=== PATIENT | female | born 1955 | race Caucasian/White ===

== ENCOUNTER → 2021-06-02 | Outpatient (CLI) | payer MEDICARE, OTHER | LOC: EXRD 12:54 | DX: Z78.0 Asymptomatic menopausal state (principal) | CPT/HCPCS: 77080 ==

== ENCOUNTER → 2021-11-03 | Outpatient (CLI) | payer MEDICARE, OTHER | LOC: US 12:50 | DX: R60.0 Localized edema (principal); I83.891 Varicose veins of right lower extremity with other complications | CPT/HCPCS: 93926; 93971 ==